=== PATIENT | male | born 1995 | race African-American/Black ===

== ENCOUNTER 2017-10-02 05:30 | Emergency (ER) | payer OTHER ==
[2017-10-02 05:38] VITALS: BP 127/83
--- NOTE | 2017-10-02 05:44 | ED INFLUENZA/URI COMPLAINT ---
History of Present Illness General Chief Complaint: General Adult Stated Complaint: "I HAVE A COUGH,SORE THROAT,@ HOME TEMP 100.7" Source: patient Exam Limitations: no limitations Vital Signs & Intake/Output Vital Signs & Intake/Output Vital Signs Date Time Temp Pulse Resp B/P B/P Pulse O2 O2 Flow FiO2 Mean Ox Delivery Rate 10/02 0538 98.5 78 22 127/83 98 Allergies Coded Allergies: MDX - Seafood (SEAFOOD) (Intermediate, ITCHING AND SWELLING 03/27/12) Uncoded Allergies: ENVIRONMENTAL ALLERGIES (Severe, SNEEZING 01/13/12) Reconcile Medications Albuterol Sulfate (Ventolin Hfa) 90 MCG HFA.AER.AD 2 PUF INH Q4-6 PRN PRN WHEEZING Doxycycline Hyclate 100 MG CAPSULE 1 CAP PO BID BRONCHITIS Ibuprofen 800 MG TABLET 1 TAB PO TID PRN pain Loratadine (Claritin) 10 MG TABLET 1 TAB PO DAILY ALLERGIES Prednisolone 15 MG/5 ML SOLUTION 10 ML PO QDAY ASTHMA/BRONCHITIS Triage Note: PER PT SORE THROAT AND COUGH X 3 DAYS WITH FEVER LAST TYLENOL 2200 Triage Nurses Notes Reviewed? yes Onset: Gradual Duration: day(s): Timing: recent history Severity: mild, moderate Prior Episodes/Possible Cause: occassional episodes Modifying Factors: Worsens With: other (worse w/smoking). Associated Symptoms: cough, nasal congestion, nasal drainage, sinus infection, sore throat HPI: 22 yo gentleman h/o asthma, current smoker presents with 3 days of cough, runny nose, sore throat, temp at home 100.7, with productive sputum. He notes also that he would like to be tested for STD's. He has been having penile->vaginal intercourse. He has no penile discharge or dysuria. He is otherwise well. Past History Travel History Traveled to [place] past 21 day No Medical History Any Pertinent Medical History? see below for history Neurological: NONE EENT: NONE Cardiovascular: NONE Respiratory: NONE Gastrointestinal: NONE Hepatic: NONE Renal: NONE Musculoskeletal: NONE Psychiatric: NONE Endocrine: NONE Surgical History Surgical History: none Psychosocial History What is your primary language Telugu Tobacco Use: Never used Family History Hx Contributory? No Review of Systems Review of Systems Constitutional: Denies: see HPI. Physical Exam Physical Exam Ears, Nose, Throat: nasal congestion, nasal drainage, pharyngeal erythema Comments: Review of Systems - except as otherwise noted in HPI Review of Systems Constitutional:no symptoms. EENTM:no symptoms. Respiratory:no symptoms. Cardiovascular:no symptoms. GI:no symptoms. Genitourinary:no symptoms. Musculoskeletal:no symptoms. Skin:no symptoms. Neurological/Psychological:no symptoms. Hematologic/Endocrine:no symptoms. Immunologic/Allergic:no symptoms. All Other Systems: Reviewed and Negative Physical Exam Physical Exam General Appearance: well developed/nourished, no apparent distress Head: atraumatic, normal appearance Eyes: Bilateral: normal appearance. Ears, Nose, Throat: see above Neck: normal inspection, supple, full range of motion Respiratory: coarse breath sounds bilaterally, chest non-tender, no respiratory distress, quiet respiration, lungs clear Cardiovascular: regular rate/rhythm Gastrointestinal: normal bowel sounds, soft, non-tender, no organomegaly Back: normal inspection, normal range of motion Extremities: normal inspection, normal capillary refill, normal range of motion, no edema Neurologic/Psych: no motor/sensory deficits, awake, alert, oriented x 3 Skin: intact, normal color, warm/dry Core Measures Sepsis Present: No Sepsis Focused Exam Completed? No Progress Differential Diagnosis: viral vs bacterial uri/bronchitis risk of sexually transmitted infections. Plan of Care: Orders Procedure Date/time Status CHLAMYDIA-GC DNA PROBE 10/03 551 Active Microbiology 10/03 551 URINE ROUT: GC DNA Probe - ORD 10/03 551 URINE ROUT: Chlamydia DNA Probe ([facility]) - ORD 10/03 547 URINE ROUT: GC DNA Probe - CAN Cancelled: Cancelled via OE: Per MD Decision 10/03 547 URINE ROUT: Chlamydia DNA Probe ([facility]) - CAN Cancelled: Cancelled via OE: Per MD Decision Initial ED EKG: none Departure Departure Disposition: HOME OR SELF CARE Condition: Stable Clinical Impression Primary Impression: Bronchitis Secondary Impressions: Contact with and (suspected) exposure to infections with a predominantly sexual mode of transmission Referrals: Patient Has No Primary Care Dr (PCP/Family) Departure Forms: Customer Survey General Discharge Information Prescriptions: Current Visit Scripts Prednisolone 10 ML PO QDAY #50 ML Doxycycline Hyclate 1 CAP PO BID #20 CAP Albuterol Sulfate (Ventolin Hfa) 2 PUF INH Q4-6 PRN PRN WHEEZING #1 INHAL Ref 1 Ibuprofen 1 TAB PO TID PRN pain #30 TAB Loratadine (Claritin) 1 TAB PO DAILY #30 TAB Comments discussed at length... gc chlamydia probe ordered.... wrote for doxy to cover respiratory pathogens as well as STI's. close follow up advised.
[2017-10-02] MEDS ORDERED: VENTOLIN HFA18 GM INH (05:48)
[2017-10-02] MEDS ORDERED: IBUPROFEN800 M1 PO (05:48)
[2017-10-02] MEDS ORDERED: CLARITIN10 M1 PO (05:48)
[2017-10-02] MEDS ORDERED: PREDNISOLO15 MG/5 M4 PO (05:48)
[2017-10-02] MEDS ORDERED: DOXYCYCLINE HY100 M2 PO (05:48)
== END 2017-10-02 06:23 ==
LOC: ERH 05:30
DX: J40 Bronchitis, not specified as acute or chronic (principal); Z20.2 Contact with and (suspected) exposure to infections with a predominantly sexual mode of transmission; F17.210 Nicotine dependence, cigarettes, uncomplicated
CPT/HCPCS: 87491; 87591